=== PATIENT | female | born 1990 | race Caucasian/White ===

== ENCOUNTER 2017-09-01 13:02 | Emergency (ER) | payer BC, OTHER ==
[2017-09-01 13:12] VITALS: BP 153/105; BMI 32.3
[2017-09-01] MEDS ORDERED: TORADOL 60 MG VIAL IM ONE (13:18)
[2017-09-01] MEDS ORDERED: TORADOL 60 MG VIAL ONE (13:18)
--- NOTE | 2017-09-01 13:18 | DR.EXTPAIN ---
HPI - Time seen Time seen: 13:15 - PCP Primary Care Physician: AMI PEACE - Complaint/Symptoms Chief Complaint Doctor Comments: History as stated, denies hip injury. Admits to pain level of 7/10, worse with ambulation, sharp. Chief Complaint:: MISSED STEP ON ATTIC LADDER AND FELL. LEFT ANKLE TURNED AND HEARD POPPING NOISE Self Treatment fo Chief Complaint: TAKING TYLENOL AND MOTRIN. WEARING WALKING BOOT - Source History Provided: Patient - Mode of arrival Mode of Arrival: Wheelchair - Timing Onset of Chief Complaint: 09/01/17 PMH - PMH Past Medical History: Yes Past Medical History: Hypertension Past Surgical History: No Surgical History: No History - Family History History of Family Medical Conditions: Yes Family Medical History: Diabetes Mellitus, [place], Coronary Artery Disease, Hypertension - Social History Type of Tobacco Use: Cigarettes Alcohol Use: None Do you use any recreational Drugs:: No Lives With: Family Lives Where: Home - infectious screening In the last 2 months have you had wt loss of >10#?: NO Have you had fever, night sweats or hemotysis?: No Have you traveled outside the country in the last 6 months?: No Isolation: Standard ROS - Review of Systems Eyes: No Symptoms Reported ENTM: No Symptoms Reported Respiratoy: No Symptoms Reported Cardiovascular: No Symptoms Reported Gastrointestinal/Abdominal: No Symptoms Reported Genitourinary: No Symptoms Reported Neurological: No Symptoms Reported Musculoskeletal: Ankle (left ankle edema ) Integumentary: No Symptoms Reported Hematologic/Lymphatic: No Symptoms Reported Endocrine: No Symptoms Reported Psychiatric: No Symptoms Reported All Other Systems: Reviewed and Negative PE - Vital Signs Vitals: Temperature 98.6 F Pulse Rate 105 Respiratory Rate 14 Blood Pressure [Left Arm] 118/79 Blood Pressure 153/105 O2 Sat by Pulse Oximetry 97 - General Limitations: No Limitations General Appearance: Alert, In No Apparent Distress - Head Head Exam: Normal Inspection, Atraumatic - Eyes Eye exam: Normal Appearance, PERRL, EOMI - ENT ENT Exam: Normal Exam - Neck Neck Exam: Normal Inspection, Full ROM - Chest Chest Inspection: Normal Inspection - Respiratory Respiratory Exam: Normal Lung Sounds Bilat, Accessory Muscle Use Respiratory Exam: Bilateral Clear to Auscultation - Cardiovascular Cardiovascular Exam: Regular Rate, Normal Rhythm - Abdominal Exam Abdominal Exam: Normal Inspection, Normal Bowel Sounds Abdominal Tenderness: negative: RUQ, RLQ, LUQ, LLQ, Epigastrium, Suprapubic, Diffuse, Mild, Moderate, Severe, Other - Extremities Extremities Exam: Normal Inspection, Full ROM - Upper Extremities Shoulder Exam: Normal Inspection Arm Exam: Normal Inspection Elbow Exam: Normal Inspection Forearm Exam: Normal Inspection Hand Exam: Normal Inspection Neuromotor Exam: Normal Exam Neurosensory Exam: Normal Exam Hand Tendon Exam: Flexor Digitorium Profundus (Location) Upper Ext. Vascular Exam: Capillary Refill, Ulnar Pulse, Felix's Test - Lower Extremities Hip/Pelvis Exam: Normal Inspection, Full ROM Upper Leg Exam: Normal Inspection Knee Exam: Normal Inspection, Full ROM Lower Leg Exam: Normal Inspection, Full ROM Ankle Exam: Tenderness (left lateral malleolus tenderness and edema) Foot/Toe Exam: Normal Inspection, Full ROM Neurovascular/Tendon Exam: Normal Capillary Refill Gait Exam: Other (limited weight bearing with boot) - Back Back Exam: Normal Inspection - Neurological Neurological Exam: Alert, Oriented X3, CN II-XII Intact - Psychiatric Psychiatric Exam: Normal Affect - Skin Skin Exam: Warm, Dry, Intact Distribution: Generalized ROR - XRAY XRAY Interpreted by: Radiologist (Left ankle: Undisplaced fracture left lateral malleolus) - Diagnosis Discharge Problem: Nondisplaced fracture of lateral malleolus of left fibula, sequela - Discharge Plan Condition: Stable - Follow ups/Referrals Follow ups/Referrals: AMI PEACE [Primary Care Provider] - 3 days - Instructions
--- NOTE | 2017-09-01 13:40 | RAD ---
Examination: Left ankle, three views History: Fell off ladder Findings: There is an acute, closed, transverse fracture of the distal fibula at the level of the ank le joint. There is no displacement, widening or deformity. There is moderate overlying soft tissue sw elling. The ankle mortise is symmetrically preserved. Impression: Undisplaced fracture left lateral malleolus. Reported By:
== END 2017-09-01 14:15 | disposition home or self-care (01) ==
LOC: ER 13:23
DX: S82.65XA Nondisplaced fracture of lateral malleolus of left fibula, initial encounter for closed fracture (principal); W11.XXXA Fall on and from ladder, initial encounter; Y92.9 Unspecified place or not applicable
CPT/HCPCS: 73610; 96372; 99282; J1885

== ENCOUNTER 2018-01-20 17:17 | Emergency (ER) | payer BC, OTHER ==
[2018-01-20 17:21] VITALS: BP 131/78; BMI 33.2
[2018-01-20 18:10] LABS: BILIRUBIN,URINE NEGATIVE (NEGATIVE); BLOOD/HEMOGLOBIN,URINE NEGATIVE (NEGATIVE); GLUCOSE, URINE NEGATIVE (NEGATIVE); KETONES,URINE NEGATIVE (NEGATIVE); LEUKOCYTE ESTERASE ,URINE NEGATIVE (NEGATIVE); NITRITES,URINE NEGATIVE (NEGATIVE); PROTEIN,URINE NEGATIVE (NEGATIVE); UROBILINOGEN,URINE NORMAL (NORMAL)
[2018-01-20 18:16] LABS: APPEARANCE,URINE CLEAR (CLEAR); COLOR,URINE YELLOW (YELLOW)
--- NOTE | 2018-01-20 18:22 | ED.ABDFE ---
HPI - Time seen Time seen: 18:20 - PCP Primary Care Physician: DELISA CHAND - HPI Comment HPI Comment: GETTING WORSE. NO FEVER OR DYSURIA. PAIN GETTING WORSE. HISTORY OVARIAN CYST. - Complaint Chief Complaint Doctors Comments: LOWER ABDOMINAL PAIN TIMES 3 DAYS. Chief Complaint:: PT. C/O ABDOMINAL CRAMPING X 2-3 DAYS. PT. HAS HX. OF OVARIAN CYST. - Nurses notes reviewed Nurses Notes Review: Yes - Source History Provided: Patient - Mode of arrival Mode of Arrival: Ambulatory - Timing Onset of Chief Complaint: 01/17/18 Came on: Suddenly - Duration Duration: Constant Duration: Days - Location Location: RLQ, LLQ, Suprapubic - Severity Severity: Moderate - Quality Quality: Cramping - Context Onset: Suddenly History of: None - Modifying Worsening Factors: Nothing Improving Factors: Nothing - Associated signs and symptoms Associated Signs and Symptoms: Other PMH - PMH Past Medical History: Yes Past Medical History: Hypertension Past Surgical History: No Surgical History: No History - Family History History of Family Medical Conditions: Yes Family Medical History: Diabetes Mellitus, [place], Coronary Artery Disease, Hypertension - Social History Does patient currently use any type of tobacco product: Yes Have you used tobacco products in the last 12 months: Yes Type of Tobacco Use: Cigarettes Does any household member use tobacco: No Alcohol Use: None Do you use any recreational Drugs:: No Lives With: Spouse Lives Where: Home - infectious screening In the last 2 months have you had wt loss of >10#?: NO Have you had fever, night sweats or hemotysis?: No Have you traveled outside the country in the last 6 months?: No Isolation: Standard ROS - Review of Systems Constitutional: No Symptoms Reported Eyes: No Symptoms Reported ENTM: No Symptoms Reported Respiratoy: No Symptoms Reported Cardiovascular: No Symptoms Reported Gastrointestinal/Abdominal: Abdominal Pain Genitourinary: No Symptoms Reported Neurological: No Symptoms Reported Musculoskeletal: No Symptoms Reported Integumentary: No Symptoms Reported Hematologic/Lymphatic: No Symptoms Reported Endocrine: No Symptoms Reported All Other Systems: Reviewed and Negative PE - Vital Signs Vitals: Temperature 99.1 F Pulse Rate 103 Respiratory Rate 17 Blood Pressure [Left Arm] 118/79 Blood Pressure 131/78 O2 Sat by Pulse Oximetry 97 - General Limitations: No Limitations General Appearance: Alert - Head Head Exam: Normal Inspection - Eyes Eye exam: Normal Appearance - ENT ENT Exam: Normal External Ear Exam - Neck Neck Exam: Trachea Midline - Chest Chest Inspection: Symmetric Chest Wall Rise - Respiratory Respiratory Exam: Normal Lung Sounds Bilat Respiratory Exam: Bilateral Clear to Auscultation - Cardiovascular Cardiovascular Exam: Regular Rate, Normal Rhythm, Normal Heart Sounds - Abdominal Exam Abdominal Exam: Normal Bowel Sounds, Soft, Tenderness Abdominal Tenderness: RLQ, LLQ, Suprapubic - Rectal Rectal Exam: Deferred - Back Back Exam: Normal Inspection - Extremeties Extremities Exam: Normal Inspection - External Exam: Female: Deferred : Speculum Exam (Female): Deferred : Bimanual Exam (female): Deferred - Neurologic Neurological Exam: Alert, Oriented X3 - Psychiatric Psychiatric Exam: Normal Affect, Normal Mood - Skin Skin Exam: Normal Color MDM - Differential Diagnosis Differential Diagnosis- Considerations may include:: Bowel Obstruction, Cholcystitis, Cholelethiasis, Diverticular disease, Gastritus/PUD, Gastroenteritis, Ovarian cyst/torsion, Pancreatitis, Urinary tract infection, Urolithiasis Course - Treatment Treatment: SEE ORDERS. - Education/Counseling Education/Counseling: Patient, Education Educated On: Diagnosis, Needs for Follow Up ROR - Labs Reviewed Laboratory Results Reviewed?: Yes Result Diagrams: 01/20/18 18:38 01/20/18 18:38 Laboratory: WBC 16.8 X10^3/uL (3.6-10.0) H 01/20/18 18:38 RBC 4.60 X10^6/uL (3.5-5.4) 18 18:38 Hgb 13.6 g/dL (12.0-16.0) 01/20/18 18:38 Hct 39.9 % (36.0-47.0) 18 18:38 MCV 86.8 fL (80.0-100.0) 18 18:38 MCH 29.5 pg (27.0-34.0) 18 18:38 MCHC 34.0 g/dL (33.0-35.0) 18 18:38 RDW 13.5 % (11.6-16.5) 01/20/18 18:38 Plt Count 309 X10^3/uL (150.0-450.0) 18 18:38 MPV 9.9 fL (7.4-11.0) 01/20/18 18:38 Neut % (Auto) 65.8 % (42.0-75.0) 01/20/18 18:38 Lymph % (Auto) 22.4 % (21.0-51.0) 01/20/18 18:38 Perry % (Auto) 6.1 % (0.0-13.0) 01/20/18 18:38 Eos % (Auto) 4.5 % (0.9-2.9) H 01/20/18 18:38 Baso % (Auto) 1.2 % (0.2-1.0) H 01/20/18 18:38 Neut # (Auto) 11.0 x10^3/uL (2.2-4.8) H 01/20/18 18:38 Lymph # (Auto) 3.8 X10^3/uL (1.3-2.9) H 01/20/18 18:38 Perry # (Auto) 1.0 x10^3/uL (0.3-0.8) H 01/20/18 18:38 Eos # (Auto) 0.7 x10^3/uL (0.0-0.2) H 01/20/18 18:38 Baso # (Auto) 0.2 X10^3/uL (0.0-0.1) H 01/20/18 18:38 Absolute Nucleated RBC 0.0 /100WBC 01/20/18 18:38 Sodium 144 mmol/L (136-145) 01/20/18 18:38 Corrected Sodium TNP 01/20/18 18:38 Potassium 3.6 mmol/L (3.5-5.1) 01/20/18 18:38 Chloride 106 mmol/L (98-107) 01/20/18 18:38 Carbon Dioxide 28.3 mmol/L (21-32) 01/20/18 18:38 BUN 11 mg/dL (7-18) 01/20/18 18:38 Creatinine 0.66 mg/dL (0.55-1.02) 01/20/18 18:38 Est GFR (MDRD) Af Amer > 60 (>60) 01/20/18 18:38 Est GFR (MDRD) Non-Af > 60 (>60) 01/20/18 18:38 Glucose 75 mg/dL (65-99) 01/20/18 18:38 Calcium 8.4 mg/dL (8.5-10.1) L 01/20/18 18:38 Corrected Calcium TNP 01/20/18 18:38 Total Bilirubin 0.30 mg/dL (0.2-1.0) 01/20/18 18:38 AST 27 Units/L (15-37) 01/20/18 18:38 ALT 59 Units/L (12-78) 01/20/18 18:38 Alkaline Phosphatase 91 Units/L (46-116) 01/20/18 18:38 Total Protein 7.7 g/dL (6.4-8.2) 01/20/18 18:38 Albumin 3.5 g/dL (3.4-5.0) 01/20/18 18:38 Globulin 4.2 g/dL (2.5-4.5) 01/20/18 18:38 Albumin/Globulin Ratio 0.8 Ratio (1.1-2.1) L 01/20/18 18:38 Amylase 39 Units/L (25-115) 01/20/18 18:38 Lipase 102 Units/L (73-393) 01/20/18 18:38 HCG, Qual Negative <10 mIU/mL 01/20/18 18:38 Specimen Type Clean catch urine 01/20/18 17:41 Urine Color Yellow (YELLOW) 01/20/18 17:41 Urine Appearance Clear (CLEAR) 01/20/18 17:41 Urine pH 8.0 (5.0 - 8.0) 01/20/18 17:41 Ur Specific [place]ity 1.015 (1.000-1.030) 01/20/18 17:41 Urine Protein Negative (NEGATIVE) 01/20/18 17:41 Urine Glucose (UA) Negative (NEGATIVE) 01/20/18 17:41 Urine Ketones Negative (NEGATIVE) 01/20/18 17:41 Urine Occult Blood Negative (NEGATIVE) 01/20/18 17:41 Urine Nitrite Negative (NEGATIVE) 01/20/18 17:41 Urine Bilirubin Negative (NEGATIVE) 01/20/18 17:41 Urine Urobilinogen Normal (NORMAL) 01/20/18 17:41 Ur Leukocyte Esterase Negative (NEGATIVE) 01/20/18 17:41 - XRAY XRAY Interpreted by: Radiologist XRAY Findings: REPORT DISCUSS WITH PATIENT. - Diagnosis Discharge Problem: Abdominal pain Qualifiers: Abdominal location: lower abdomen, unspecified Qualified Code(s): R10.30 - Lower abdominal pain, unspecified Leukocytosis Qualifiers: Leukocytosis type: unspecified Qualified Code(s): D72.829 - Elevated white blood cell count, unspecified - Discharge Plan Disposition: HOME, SELF-CARE Condition: Stable - Follow ups/Referrals Follow ups/Referrals: AMI PEACE [Primary Care Provider] - 3 days - Instructions Instructions: Leukocytosis, Abdominal Pain, Adult, [id number] Additional Instructions: RETURN TO ED IF WORSE. REPEAT CBC IN ED IN AM.
[2018-01-20 18:59] LABS: BASOPHILS # (AUTO) 0.2 X10^3/uL (0.0-0.1); BASOPHILS % (AUTO) 1.2 % (0.2-1.0); EOSINOPHILS # (AUTO) 0.7 x10^3/uL (0.0-0.2); EOSINOPHILS % (AUTO) 4.5 % (0.9-2.9); HEMATOCRIT 39.9 % (36.0-47.0); HEMOGLOBIN 13.6 g/dL (12.0-16.0); LYMPHOCYTES # (AUTO) 3.8 X10^3/uL (1.3-2.9); LYMPHOCYTES % (AUTO) 22.4 % (21.0-51.0); MEAN CORPUSCULAR HEMOGLOBIN 29.5 pg (27.0-34.0); MEAN CORPUSCULAR VOLUME 86.8 fL (80.0-100.0); MEAN PLATELET VOLUME 9.9 fL (7.4-11.0); MONOCYTES % (AUTO) 6.1 % (0.0-13.0); NEUTROPHILS % (AUTO) 65.8 % (42.0-75.0); PLATELET COUNT 309 X10^3/uL (150.0-450.0); RED CELL DISTRIBUTION WIDTH 13.5 % (11.6-16.5); WHITE BLOOD COUNT 16.8 X10^3/uL (3.6-10.0)
--- NOTE | 2018-01-20 19:09 | CT ---
CT abdomen and pelvis without contrast Indication: Abdominal pain with cramping. Painful urination. Comparison: None Technique: CT images of the abdomen and pelvis were obtained without contrast. Automatic exposure con trol was utilized. Findings: Aside from minimal atelectasis, the lung bases are clear. No aggressive osseous lesions. Evaluation of the abdominal pelvic viscera is limited without contrast. Accounting for this, the live r, gallbladder, spleen, stomach, duodenum, pancreas, adrenals, and kidneys are unremarkable. There is no renal stone or hydronephrosis. No ureteral stones are identified. The urinary bladder is unremark able. No significant bowel thickening or dilatation of the lower GI tract is identified. The appendix is normal. The uterus and ovaries are noted. The rectum is unremarkable. Small amount of pelvic free fluid is likely physiologic. No adenopathy identified. Impression: No etiology for patient's symptoms identified. Specifically, no urinary stone or urinary obstruction. Reported By:
[2018-01-20 19:14] LABS: ALANINE AMINOTRANSFERASE 59 Units/L (12-78); ALBUMIN 3.5 g/dL (3.4-5.0); ALKALINE PHOSPHATASE 91 Units/L (46-116); AMYLASE 39 Units/L (25-115); ASPARTATE AMINO TRANSFERASE 27 Units/L (15-37); BLOOD UREA NITROGEN 11 mg/dL (7-18); CALCIUM 8.4 mg/dL (8.5-10.1); CARBON DIOXIDE 28.3 mmol/L (21-32); CHLORIDE 106 mmol/L (98-107); CREATININE 0.66 mg/dL (0.55-1.02); LIPASE 102 Units/L (73-393); SODIUM 144 mmol/L (136-145); TOTAL PROTEIN 7.7 g/dL (6.4-8.2); eGFR BLACK RACES > 60 (>60); eGFR NON BLACK RACES > 60 (>60)
[2018-01-20 19:33] LABS: SERUM PREGNANCY TEST, QUAL NEGATIVE <10 mIU/mL
== END 2018-01-20 20:52 | disposition home or self-care (01) ==
LOC: ER 17:28
DX: R10.31 Right lower quadrant pain (principal); D72.828 Other elevated white blood cell count
CPT/HCPCS: 36415; 74176; 80053; 81003; 82150; 83690; 84703; 85025; 99283

== ENCOUNTER 2019-01-19 02:12 | Inpatient (IN) ==
[2019-01-19 02:33] LABS: BILIRUBIN,URINE NEGATIVE (NEGATIVE); BLOOD/HEMOGLOBIN,URINE 4+ (NEGATIVE); GLUCOSE, URINE NEGATIVE (NEGATIVE); KETONES,URINE NEGATIVE (NEGATIVE); LEUKOCYTE ESTERASE ,URINE NEGATIVE (NEGATIVE); NITRITES,URINE NEGATIVE (NEGATIVE); PROTEIN,URINE 2+ (NEGATIVE); UROBILINOGEN,URINE NORMAL (NORMAL)
[2019-01-19 02:35] VITALS: BMI 34.0
[2019-01-19 02:35] LABS: AMNISURE ROM TEST THERE IS A RUPTURE (NO RUPTURE)
[2019-01-19 02:41] LABS: APPEARANCE,URINE HAZY (CLEAR); COLOR,URINE YELLOW (YELLOW); SQUAMOUS EPITHELIAL CELL,UR RARE /HPF (NEGATIVE)
[2019-01-19 02:42] LABS: AMORPHOUS SEDIMENT,UR 1+ /HPF (NEGATIVE); BACTERIA,URINE NEGATIVE /HPF (NEGATIVE)
[2019-01-19] MEDS ORDERED: REGLAN INJ 10 MG VIAL IVP PRN ×2 (03:09→12:46)
[2019-01-19] MEDS ORDERED: NUBAIN INJ 200 MG VIAL MULTIDOSE IVP PRN (03:09)
[2019-01-19] MEDS ORDERED: D5LR 1L W PITOCIN 10 UNITS/L 10 UNITS/1,000 ML BAG IV PRN (03:09)
[2019-01-19] MEDS ORDERED: PITOCIN IVP ONE (03:09)
[2019-01-19] MEDS ORDERED: XYLOCAINE 1 % (PLAIN) ONE (03:23)
[2019-01-19] MEDS ORDERED: ADRENALINE CHL INJ ONE (03:24)
[2019-01-19] MEDS ORDERED: FENTANYL INJ 100 mcg ONE (03:24)
[2019-01-19] MEDS ORDERED: NAROPIN EPIDURAL 0.2% + FENTANYL 90MCG 60 ML EPI ONE (03:24)
[2019-01-19] MEDS ORDERED: XYLOCAINE-MPF 1% ONE (03:24)
[2019-01-19] MEDS ORDERED: D5 1/2 NS 1L W PITOCIN 20 UNITS/L 20 UNITS/1,000 ML BAG IV ONE (03:25)
[2019-01-19 03:26] LABS: BASOPHILS # (AUTO) 0.1 X10^3/uL (0.0-0.1); BASOPHILS % (AUTO) 0.8 % (0.2-1.0); EOSINOPHILS # (AUTO) 1.2 x10^3/uL (0.0-0.2); EOSINOPHILS % (AUTO) 6.9 % (0.9-2.9); HEMATOCRIT 35.2 % (36.0-47.0); HEMOGLOBIN 11.8 g/dL (12.0-16.0); LYMPHOCYTES # (AUTO) 4.6 X10^3/uL (1.3-2.9); LYMPHOCYTES % (AUTO) 27.4 % (21.0-51.0); MEAN CORPUSCULAR HEMOGLOBIN 29.5 pg (27.0-34.0); MEAN CORPUSCULAR HGB CONC 33.6 g/dL (33.0-35.0); MEAN CORPUSCULAR VOLUME 87.7 fL (80.0-100.0); MEAN PLATELET VOLUME 10.9 fL (7.4-11.0); MONOCYTES # (AUTO) 1.3 x10^3/uL (0.3-0.8); MONOCYTES % (AUTO) 7.9 % (0.0-13.0); NEUTROPHILS # (AUTO) 9.5 x10^3/uL (2.2-4.8); PLATELET COUNT 389 X10^3/uL (150.0-450.0); RED BLOOD COUNT 4.02 X10^6/uL (3.5-5.4); RED CELL DISTRIBUTION WIDTH 14.2 % (11.6-16.5); WHITE BLOOD COUNT 16.7 X10^3/uL (3.6-10.0)
[2019-01-19] MEDS ORDERED: LR 1000 ML IV 1,000 ML ONE (03:28)
[2019-01-19 03:32] LABS: BLOOD UREA NITROGEN 10 mg/dL (7-18); CALCIUM 9.1 mg/dL (8.5-10.1); CARBON DIOXIDE 21.9 mmol/L (21-32); CHLORIDE 103 mmol/L (98-107); CREATININE 0.56 mg/dL (0.55-1.02); SODIUM 137 mmol/L (136-145); eGFR NON BLACK RACES > 60 (>60)
[2019-01-19 03:53] LABS: URIC ACID 3.7 mg/dL (2.6-6.0)
[2019-01-19] MEDS ORDERED: D5 1/2 NS 1000 ML 1,000 ML IV SCH (04:00)
[2019-01-19] MEDS ORDERED: PHENERGAN INJ 25 MG IM PRN ×2 (07:40→12:46)
--- NOTE | 2019-01-19 07:40 | DR.OB ---
OB Quick Note - Assessment/Plan Assessment/Plan: Delivery Note IRRIGATION TECHNICIAN 01/19/19 at 7:18am Patient complete and pushing. Head delivered over intact perineum. Nuchal cord x 1 loose and reduced. Nose and mouth bulb suctioned. Body delivered over intact perineum. Cord clamped x 2 and cut. handed to attendant. Cord sent for gases. Placenta delivered spontaneously / intact / 3 vessel cord. No CVX tears. A small midline second degree tear noted and repaired with 0-vicryl in usual fashion. Viable male infant, VTX/OA, wt=7'2" and 8/9, stable to NBN. Mother stable to RR. [id number].
[2019-01-19] MEDS ORDERED: AMBIEN PO PRN (08:54)
[2019-01-19] MEDS ORDERED: MILK OF MAGNESIA PO PRN (08:54)
[2019-01-19] MEDS ORDERED: ADACEL or BOOSTRIX TDaP VACCINE IM ONE ×2 (08:54→14:12)
[2019-01-19] MEDS: PRENATAL PLUS PO SCH (10:53)
[2019-01-19] MEDS: KLONOPIN TAB 1 MG PO SCH ×2 (10:53→21:10)
[2019-01-19] MEDS: NORMODYNE TAB 200 MG PO SCH ×2 (10:53→21:11)
[2019-01-19] MEDS: ZANTAC PO SCH ×2 (10:54→21:11)
[2019-01-19] MEDS ORDERED: XYLOCAINE 2% and EPINEPHRINE 1:100,000 ONE (11:50)
[2019-01-19] MEDS ORDERED: ANCEF 1 GRAM IV PREMIX* 1 G/50 ML BAG IV ONE (11:56)
[2019-01-19] MEDS ORDERED: BENADRYL INJ 50 MG VIAL IVP PRN (12:46)
[2019-01-19] MEDS ORDERED: ZOFRAN INJ 4 MG VIAL IVP PRN (12:46)
[2019-01-19] MEDS: DILAUDID INJ IVP PRN ×3 (13:20→21:12)
[2019-01-19] MEDS ORDERED: VERSED ONE (15:40)
[2019-01-19] MEDS: MOTRIN TAB 800 MG PO PRN (16:08)
[2019-01-19] MEDS: D5 1/2 NS 1000 ML 1,000 ML with PITOCIN 20 UNITS IV SCH ×2 (18:52)
[2019-01-19] MEDS: DERMOPLAST SPRAY TOP PRN (21:33)
[2019-01-20] MEDS: D5 1/2 NS 1000 ML 1,000 ML with PITOCIN 20 UNITS IV SCH ×4 (01:00→10:30)
[2019-01-20] MEDS: MOTRIN TAB 800 MG PO PRN (03:55)
[2019-01-20 05:37] LABS: HEMATOCRIT 30.6 % (36.0-47.0); HEMOGLOBIN 10.2 g/dL (12.0-16.0)
[2019-01-20] MEDS ORDERED: PERCOCET TAB 5/325 MG PO PRN (08:35)
[2019-01-20] MEDS: PRENATAL PLUS PO SCH (08:42)
[2019-01-20] MEDS: NORMODYNE TAB 200 MG PO SCH (08:42)
[2019-01-20] MEDS: KLONOPIN TAB 1 MG PO SCH (08:42)
[2019-01-20] MEDS: ZANTAC PO SCH (08:42)
[2019-01-20] MEDS ORDERED: PERCOCET TAB 5/325 MG ONE (09:08)
[2019-01-20 11:47] VITALS: BP 118/78
[2019-01-20] MEDS: DERMOPLAST SPRAY TOP PRN (12:20)
[2019-01-20] MEDS ORDERED: BACTROBAN CREAM TOP SCH (14:00)
== END 2019-01-20 12:50 | disposition home or self-care (01) | DRG 797 ==
LOC: ER 02:12 → LD 03:00 → MED/SURG 08:45
PROVIDERS: ADMIT Specialist; ATTEND Specialist
DX: Z3A.36 36 weeks gestation of pregnancy; Z23 Encounter for immunization; O70.1 Second degree perineal laceration during delivery; O99.343 Other mental disorders complicating pregnancy, third trimester; R87.619 Unspecified abnormal cytological findings in specimens from cervix uteri; O10.913 Unspecified pre-existing hypertension complicating pregnancy, third trimester; O99.613 Diseases of the digestive system complicating pregnancy, third trimester; Z37.0 Single live birth; O60.14X0 Preterm labor third trimester with preterm delivery third trimester, not applicable or unspecified
CPT/HCPCS: 36415; 80048; 80307; 81001; 83615; 84112; 84450; 84460; 84550; 85014; 85018; 85025; 85384; 85610; 85730; 86592; 86850; 86900; 86901; 90715; 96365; 99284; A4216; A4222; S0197; G0434; J0171; J0690; J1170; J2001; J2250; J2590; J3010; J7120; S5010

== ENCOUNTER 2021-01-16 07:24 | Inpatient (IN) ==
[2021-01-16] MEDS ORDERED: BENADRYL INJ 50 MG VIAL IV PRN (07:37)
[2021-01-16] MEDS ORDERED: TORADOL 30 MG VIAL IVP PRN (07:37)
[2021-01-16] MEDS ORDERED: ANCEF VIAL 1 GRAM IVP SCH (08:00)
[2021-01-16] MEDS ORDERED: NS 100 ML IV 100 ML IV ONE (08:21)
[2021-01-16] MEDS: NS 1000 ML 1,000 ML IV SCH ×3 (08:52→17:06)
[2021-01-16 10:09] VITALS: BMI 31.8
[2021-01-16 10:29] LABS: SERUM PREGNANCY TEST, QUAL NEGATIVE <10 mIU/mL
[2021-01-16] MEDS ORDERED: FENTANYL INJ 100 mcg ONE (11:01)
[2021-01-16] MEDS ORDERED: KETALAR ONE ×2 (11:01→11:25)
[2021-01-16] MEDS ORDERED: OFIRMEV IV 1000 MG VIAL 1,000 MG/100 ML VIAL IV ONE (11:09)
[2021-01-16] MEDS ORDERED: ANCEF 1 GRAM IV PREMIX* 1 G/50 ML BAG IV ONE (11:16)
[2021-01-16] MEDS ORDERED: TORADOL 30 MG VIAL ONE (11:25)
[2021-01-16] MEDS ORDERED: ZOFRAN INJ 4 MG VIAL ONE (11:25)
[2021-01-16] MEDS ORDERED: DECADRON INJ ONE (11:25)
[2021-01-16] MEDS ORDERED: DIPRIVAN VIAL ONE (11:25)
[2021-01-16] MEDS ORDERED: XYLOCAINE 2 % (PLAIN) ONE (11:25)
[2021-01-16] MEDS ORDERED: ULTANE GAS IN ONE (11:25)
[2021-01-16] MEDS ORDERED: POLYMYXIN B SULFATE ONE (11:46)
[2021-01-16] MEDS ORDERED: PERCOCET TAB 5/325 MG PO PRN (12:18)
[2021-01-16] MEDS ORDERED: ZOFRAN INJ 4 MG VIAL IVP PRN (12:26)
[2021-01-16] MEDS ORDERED: DILAUDID INJ ONE (12:26)
[2021-01-16] MEDS ORDERED: PHENERGAN INJ 25 MG IM PRN (12:26)
[2021-01-16] MEDS ORDERED: BENADRYL INJ 50 MG VIAL IVP PRN (12:26)
[2021-01-16] MEDS ORDERED: DILAUDID INJ IVP PRN (12:26)
[2021-01-16] MEDS ORDERED: ANCEF VIAL 1 GRAM 1 G in NS 100 ML IV + SPIKE MINIBAG* 100 ML IV SCH (15:00)
[2021-01-16] MEDS ORDERED: ROCEPHIN 1 GRAM IV PREMIX 1 G/50 ML IV.SOLN. IV ONE (19:20)
[2021-01-16 22:19] VITALS: BP 143/80
== END 2021-01-16 20:30 | disposition left against medical advice (07) | DRG 585 ==
LOC: OBS 07:24 → MED/SURG 08:14
PROVIDERS: ADMIT Surgery; ATTEND Surgery
DX: B95.61 Methicillin susceptible Staphylococcus aureus infection as the cause of diseases classified elsewhere; Z53.29 Procedure and treatment not carried out because of patient's decision for other reasons; N61.1 Abscess of the breast and nipple; Z20.822 Contact with and (suspected) exposure to COVID-19